=== PATIENT | female | born 1990 | race Asian ===

== ENCOUNTER 2017-12-09 21:48 | Emergency (ER) | payer OTHER ==
[2017-12-09 21:57] VITALS: BP 117/71; PULSE 73; TEMP 97; BMI 26.6
[2017-12-09] MEDS ORDERED: DEXAMETHASONE SOD PHOSPHATE 10 MG/1 ML VIAL ONE (22:09)
--- NOTE | 2017-12-09 22:13 | PDOC ---
History of Present Illness - General Chief Complaint: Bite Stated Complaint: BITE Time Seen by Provider: 12/09/17 22:05 History Source: Patient Exam Limitations: No Limitations - History of Present Illness Initial Comments: 12/09/17 22:09 Patient came to emergency department for evaluation of multiple thought to be mosquito bites. States was hiking yesterday and sustained multiple bites but was concerned about potential infectious disease. 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) Timing/Duration: reports: getting worse, yesterday Severity: Yes: mild, moderate Location: reports: extremities, torso Associated Symptoms: reports: denies symptoms Past History - Travel Traveled outside of the country in the last 30 days: No Close contact w/someone who was outside of country & ill: No - Past Medical History Home Medications: Ambulatory Orders NK [No Known Home Medication] 12/09/17 Cancer: No Cardiac Disorders: No COPD: No DVT: No - Surgical History Gastric Stapling: No Lung Surgery: No - Suicide/Smoking/Psychosocial Hx Smoking History: Never smoked Information on smoking cessation initiated: No Hx Alcohol Use: No Drug/Substance Use Hx: No Substance Use Type: None Review of Systems - Review of Systems Able to Perform ROS?: Yes Is the patient limited [place]ian proficient: Yes Constitutional: Yes: Symptoms Reported, See HPI. No: Chills, Fever, Malaise HEENTM: Yes: See HPI. No: Symptoms Reported, Nose Congestion, Throat Swelling, Mouth Pain, Difficulty Swallowing, Mouth Swelling Respiratory: Yes: See HPI. No: Symptoms reported, Cough, Wheezing : No: Symptoms Reported Musculoskeletal: No: Symptoms Reported Integumentary: Yes: Symptoms Reported, See HPI, Pruritus, Rash Neurological: No: Symptoms reported All Other Systems: Reviewed and Negative *Physical Exam - Vital Signs Last Vital Signs Temp Pulse Resp BP Pulse Ox 97 F L 73 20 117/71 100 12/09/17 21:55 12/09/17 21:55 12/09/17 21:55 12/09/17 21:55 12/09/17 21:55 - Physical Exam General Appearance: Yes: Nourished, Appropriately Dressed, Apparent Distress HEENT: positive: ELOY, Normal ENT Inspection, TMs Normal, Pharynx Normal (no swelling to mouth lips or tongue ). negative: Rhinorrhea Respiratory/Chest: positive: Lungs Clear. negative: Wheezing Integumentary: positive: Rash, Swelling, Other (mukltiple erythematous lesions with wheeal-like centers all consisitant with mosquito bites, no evidence of purulence/ vesivles . ) Neurologic: positive: dietitian research II-XII NML intact, Fully Oriented, Alert, Normal Mood/ Affect, Normal Response, Motor Strength 5/5 Progress Note - Progress Note Progress Note: multiple mosquito bites.- no anaphylaxis / infectiousness/ cellulitis.. will treat conservatively. *DC/Admit/Observation/Transfer Diagnosis at time of Disposition: Insect bites and stings Qualifiers: Encounter type: initial encounter Qualified Code(s): W57.XXXA - Bitten or stung by nonvenomous insect and other nonvenomous arthropods, initial encounter - Discharge Dispostion Disposition: HOME Condition at time of disposition: Stable Decision to Admit order: No - Referrals - Patient Instructions Printed Discharge Instructions: How to Care for an Insect Bite or Sting Additional Instructions: Rest, keep cool and dry- avoid strenuous activity or hot /humid environments Less hot showers, no abrasive soaps May use ice packs, cool cloth on itching lesions May use heavy creams like Eucerin or Cetaphil to keep skin moist May apply Aveeno, calamine lotion, [id number] hydrocortisone creams as needed for symptoms May use Benadryl at night for antihistamine, Zyrtec/ Miranda or Claritin for daytime antihistamine use to help with itching A use aloe vera gel to help assist with itching and inflammatory response May use [id number] hydrocortisone cream on all areas except face Try to identify cause for rash and avoid exposures Be sure to use insect sprays/repellent, ones with DEET are the most effective when outdoors Followup with PMD in one week if no resolution Make appointment with plant attendant for evaluation when possible Return to emergency department for worsening swelling, pus or purulent drainage from areas or any changes with swelling to lips, tongue, face or breathing problems from ALLERGIC reaction. - Post Discharge Activity
[2017-12-09] MEDS ORDERED: DEXAMETHASONE SOD PHOSPHATE 10 MG/1 ML VIAL IM ONE (22:15)
== END 2017-12-09 22:23 | disposition home or self-care (01) ==
LOC: JERFT 21:48
PROC: 3E0233Z Introduction of Anti-inflammatory into Muscle, Percutaneous Approach (ICD-10-PCS; principal; 2017-12-09)
DX: T14.8XXA Other injury of unspecified body region, initial encounter (principal); W57.XXXA Bitten or stung by nonvenomous insect and other nonvenomous arthropods, initial encounter; Y93.01 Activity, walking, marching and hiking; Y92.828 Other wilderness area as the place of occurrence of the external cause; Y99.8 Other external cause status
CPT/HCPCS: 96372; 99281-25; J1100